=== PATIENT | female | born 1975 | race Caucasian/White ===

== ENCOUNTER 2017-11-28 06:23 | Day surgery (SDC) | payer OTHER ==
[~2017-11-28 06:23] MED LIST: ARMOUR THYROID30 M1 PO; CIPRO500 MG PO; NORFLEX; PANADOL EXTRA500 MG PO; TYLENOL-CODEINE1 TAB PO
[2017-11-28] MEDS ORDERED: NAPROXEN SODIU550 MG PO (10:43)
== END 2017-11-28 18:03 | disposition home or self-care (01) ==
LOC: CIR.AMB 06:23
DX: N84.0 Polyp of corpus uteri (principal)